=== PATIENT | female | born 1990 | race African-American/Black ===

== ENCOUNTER 2024-08-13 16:10 | Inpatient (IN) | payer OTHER ==
[2024-08-13] MEDS: ELECTROLYTE-148 SOLN 1,000 ML IV SCH (21:00)
[2024-08-13 21:13] LABS: ABSOLUTE IMMATURE GRANULOCYTES 0.07 x10^3/uL (0.0-0.031); BASOPHILS # 0.05 x10^3/uL (0.01-0.08); EOSINOPHIL % 0.6 % (0.7-5.8); EOSINOPHILS # 0.05 x10^3/uL (0.04-0.36); MCHC 32.5 g/dl (32.2-35.5); MEAN CELL VOLUME 92.7 fl (79.4-94.8); MEAN PLT VOLUME 12.0 fl (9.4-12.3); MONOCYTE # 0.57 x10^3/uL (0.24-0.86); MONOCYTE % 6.5 % (4.7-12.5); RDW 15.5 % (12.1-16.8)
[2024-08-13 21:25] LABS: INR 1.0 (0.83-1.09); PROTHROMBIN TIME (PATIENT) 11.0 SEC (9.7-13.0)
[2024-08-13 21:27] LABS: ACTIVATED PTT 29.7 SECONDS (25.2-36.5)
[2024-08-13 21:35] LABS: CO2 23.0 mmol/L (21-32); GLUCOSE,RANDOM 73.0 mg/dL (74-106)
[2024-08-13 21:38] LABS: CREATININE 0.7 mg/dL (0.55-1.3)
[2024-08-13 22:01] LABS: HEPATITIS B SURFACE AG MATERN NON-REACTIVE (NONREACTIVE); SYPHILIS W/ RPR CONF NON-REACTIVE (NONREACTIVE)
[2024-08-13 22:30] LABS: HCV DIAGNOSTIC IN-HOUSE W/RFLX NON-REACTIVE (NONREACTIVE)
[2024-08-13 22:31] LABS: HIV INTERPRETATION NEGATIVE (NEGATIVE)
[2024-08-13 22:53] VITALS: BMI 26.0
[2024-08-13] MEDS ORDERED: LIDOCAINE HCL 1% PRESERVATIVE FREE - 30ML VIAL ONE (22:59)
[2024-08-13] MEDS ORDERED: OXYTOCIN 20 UNITS in 0.9% NS 20 UNIT/1,000 ML INFUS.BAG IV ONE (22:59)
[2024-08-13] MEDS ORDERED: BISACODYL 10 MG SUPP.RECT RC PRN (23:15)
[2024-08-13] MEDS ORDERED: IBUPROFEN 600 MG TABLET (FP) PO PRN (23:15)
[2024-08-13] MEDS ORDERED: ACETAMINOPHEN 325 MG TABLET (FP) PO PRN (23:15)
[2024-08-13] MEDS: OXYTOCIN 20 UNITS in 0.9% NS 20 UNIT/1,000 ML INFUS.BAG IV SCH (23:15)
[2024-08-13] MEDS ORDERED: BENZOCAINE 28 GM HEMORRHOIDAL OINTMENT TP PRN (23:15)
[2024-08-14] MEDS: METHYLERGONOVINE MALEATE 0.2 MG/1 ML AMP IM PRN (01:49)
[2024-08-14] MEDS ORDERED: OXYTOCIN 20 UNITS in 0.9% NS 20 UNIT/1,000 ML INFUS.BAG IV ONE (01:54)
[2024-08-14] MEDS ORDERED: TRANEXAMIC ACID 1000 MG/10 ML VIAL ONE (01:54)
[2024-08-14] MEDS ORDERED: MISOPROSTOL 200 MCG TABLET ONE (01:58)
[2024-08-14] MEDS: TRANEXAMIC ACID 1000 MG/10 ML VIAL IVPUSH ONE (01:58)
[2024-08-14] MEDS: MISOPROSTOL 200 MCG TABLET NR ONE (02:02)
[2024-08-14] MEDS: METHYLERGONOVINE MALEATE 0.2 MG/1 ML AMP IM ONE (02:45)
[2024-08-14 03:45] LABS: ABSOLUTE IMMATURE GRANULOCYTES 0.09 x10^3/uL (0.0-0.031); BASOPHILS # 0.03 x10^3/uL (0.01-0.08); EOSINOPHIL % 0.0 % (0.7-5.8); EOSINOPHILS # 0.00 x10^3/uL (0.04-0.36); MCHC 32.3 g/dl (32.2-35.5); MEAN CELL VOLUME 92.7 fl (79.4-94.8); MEAN PLT VOLUME 11.4 fl (9.4-12.3); MONOCYTE # 0.84 x10^3/uL (0.24-0.86); MONOCYTE % 6.2 % (4.7-12.5); RDW 15.2 % (12.1-16.8)
[2024-08-14 04:00] LABS: CO2 21.0 mmol/L (21-32); GLUCOSE,RANDOM 95.0 mg/dL (74-106)
[2024-08-14 04:03] LABS: CREATININE 0.6 mg/dL (0.55-1.3); SGOT/AST 24.0 U/L (15-37); SGPT/ALT 17.0 U/L (13-61)
[2024-08-14 04:05] LABS: TOT PROT 5.7 g/dl (6.4-8.2)
[2024-08-14 04:06] LABS: ALK PHOS 178.0 U/L (45-117)
[2024-08-14 04:08] LABS: ACTIVATED PTT 27.4 SECONDS (25.2-36.5); INR 0.98 (0.83-1.09); PROTHROMBIN TIME (PATIENT) 10.8 SEC (9.7-13.0)
[2024-08-14] MEDS: METHYLERGONOVINE MALEATE 0.2 MG/1 ML AMP IM SCH (07:08)
[2024-08-14 16:00] LABS: ABSOLUTE IMMATURE GRANULOCYTES 0.16 x10^3/uL (0.0-0.031); BASOPHILS # 0.05 x10^3/uL (0.01-0.08); EOSINOPHIL % 0.1 % (0.7-5.8); EOSINOPHILS # 0.01 x10^3/uL (0.04-0.36); MCHC 33.2 g/dl (32.2-35.5); MEAN CELL VOLUME 90.2 fl (79.4-94.8); MEAN PLT VOLUME 11.6 fl (9.4-12.3); MONOCYTE # 1.20 x10^3/uL (0.24-0.86); MONOCYTE % 6.4 % (4.7-12.5); RDW 15.4 % (12.1-16.8)
[2024-08-14] MEDS ORDERED: SENNOSIDES/DOCUSATE COMBO (SENNA PLUS) TABLET (UD) PO PRN (22:00)
[2024-08-15] MEDS: WITCH HAZEL 50% (TUCKS) 40 PAD/JAR PAD TP PRN (06:04)
[2024-08-15] MEDS: BENZOCAINE 20% 57 GM BOTTLE TP PRN (06:05)
[2024-08-15] MEDS: PRENATAL VITAMINS W/ FOLIC ACID TABLET (FP) PO SCH (08:10)
[2024-08-15 09:28] VITALS: RESP 17
[2024-08-15 09:40] LABS: ABSOLUTE IMMATURE GRANULOCYTES 0.13 x10^3/uL (0.0-0.031); BASOPHILS # 0.06 x10^3/uL (0.01-0.08); EOSINOPHIL % 0.3 % (0.7-5.8); EOSINOPHILS # 0.04 x10^3/uL (0.04-0.36); MCHC 33.6 g/dl (32.2-35.5); MEAN CELL VOLUME 89.2 fl (79.4-94.8); MEAN PLT VOLUME 11.1 fl (9.4-12.3); MONOCYTE # 0.78 x10^3/uL (0.24-0.86); MONOCYTE % 5.0 % (4.7-12.5); RDW 15.8 % (12.1-16.8)
[2024-08-16 12:46] VITALS: BP 94/73; PULSE 85; TEMP 98.2
== END 2024-08-16 17:10 | disposition home or self-care (01) | DRG 560 ==
LOC: JDEL 16:10 → EDBD 16:10 → JLDR 20:25 → J3W 08-14 17:15
PROVIDERS: ADMIT Obstetrics & Gynecology; ATTEND Obstetrics & Gynecology
PROC: 10E0XZZ Delivery of Products of Conception, External Approach (ICD-10-PCS; principal; 2024-08-13)
PROC: 30233N1 Transfusion of Nonautologous Red Blood Cells into Peripheral Vein, Percutaneous Approach (ICD-10-PCS; 2024-08-14)
DX: O66.0 Obstructed labor due to shoulder dystocia (principal); O72.1 Other immediate postpartum hemorrhage; O99.013 Anemia complicating pregnancy, third trimester; Z3A.39 39 weeks gestation of pregnancy; Z37.0 Single live birth
CPT/HCPCS: 36415; 36430; 59025; 59409; 71045-TC-FY; 80048; 80053; 85025; 85384; 85610; 85730; 86780; 86803; 86850; 86900; 86901; 86922; 87340; 87389; P9038; P9058